=== PATIENT | male | born 1995 | race Caucasian/White ===

== ENCOUNTER → 2019-07-12 07:42 | Outpatient (BNVA) | payer MEDICAID, SELFPAY | PROVIDERS: Family Provider Family Medicine; PCP Family Medicine; Visit Provider Social Worker Clinical | DX: F90.2 Attention-deficit hyperactivity disorder, combined type (principal); F95.2 Tourette's disorder | CPT/HCPCS: 90834 ==

== ENCOUNTER → 2019-08-15 11:07 | Outpatient (BNVA) | payer MEDICAID, SELFPAY | PROVIDERS: Family Provider Family Medicine; PCP Family Medicine; Visit Provider Specialist | DX: F95.2 Tourette's disorder (principal); F60.5 Obsessive-compulsive personality disorder | CPT/HCPCS: 99213 ==

== ENCOUNTER → 2019-09-04 08:00 | Outpatient (BNVA) | payer MEDICAID, SELFPAY | PROVIDERS: Family Provider Family Medicine; PCP Family Medicine; Visit Provider Counselor Professional | DX: F60.5 Obsessive-compulsive personality disorder (principal); F95.2 Tourette's disorder; F98.8 Other specified behavioral and emotional disorders with onset usually occurring in childhood and adolescence | CPT/HCPCS: 90834 ==

== ENCOUNTER → 2019-09-25 09:07 | Outpatient (BNVA) | payer MEDICAID, SELFPAY | PROVIDERS: Family Provider Family Medicine; PCP Family Medicine; Visit Provider Counselor Professional | DX: F60.5 Obsessive-compulsive personality disorder (principal); F95.2 Tourette's disorder; F98.8 Other specified behavioral and emotional disorders with onset usually occurring in childhood and adolescence | CPT/HCPCS: 90834 ==

== ENCOUNTER → 2019-12-04 08:44 | Outpatient (BNVA) | payer MEDICAID, SELFPAY | PROVIDERS: Family Provider Family Medicine; PCP Family Medicine; Visit Provider Specialist | DX: R29.90 Unspecified symptoms and signs involving the nervous system (principal); F60.5 Obsessive-compulsive personality disorder; F95.2 Tourette's disorder | CPT/HCPCS: 99213; 99214 ==

== ENCOUNTER → 2019-12-06 08:29 | Outpatient (BNVA) | payer MEDICAID, SELFPAY | PROVIDERS: Family Provider Family Medicine; PCP Family Medicine; Visit Provider Counselor Professional | DX: F60.5 Obsessive-compulsive personality disorder (principal); F95.2 Tourette's disorder; F98.8 Other specified behavioral and emotional disorders with onset usually occurring in childhood and adolescence | CPT/HCPCS: 90834 ==

== ENCOUNTER → 2020-01-31 08:55 | Outpatient (BNVA) | payer MEDICAID, SELFPAY | PROVIDERS: Family Provider Family Medicine; PCP Family Medicine; Visit Provider Counselor Professional | DX: F60.5 Obsessive-compulsive personality disorder (principal); F95.2 Tourette's disorder | CPT/HCPCS: 90834 ==

== ENCOUNTER → 2020-02-07 07:25 | Outpatient (BNVA) | payer MEDICAID, SELFPAY | PROVIDERS: Family Provider Family Medicine; PCP Family Medicine; Visit Provider Counselor Professional | DX: F60.5 Obsessive-compulsive personality disorder (principal); F95.2 Tourette's disorder; F98.8 Other specified behavioral and emotional disorders with onset usually occurring in childhood and adolescence | CPT/HCPCS: 90834 ==

== ENCOUNTER → 2020-02-21 08:10 | Outpatient (BNVA) | payer MEDICAID, SELFPAY | PROVIDERS: Family Provider Family Medicine; PCP Family Medicine; Visit Provider Counselor Professional | DX: F60.5 Obsessive-compulsive personality disorder (principal); F95.2 Tourette's disorder | CPT/HCPCS: 90832 ==

== ENCOUNTER → 2020-05-01 08:23 | Outpatient (BNVA) | payer MEDICAID, SELFPAY | PROVIDERS: Family Provider Family Medicine; PCP Family Medicine; Visit Provider Counselor Professional | DX: F60.5 Obsessive-compulsive personality disorder (principal); F95.2 Tourette's disorder | CPT/HCPCS: 90834 ==

== ENCOUNTER → 2020-05-30 09:04 | Outpatient (BNVA) | payer MEDICAID, SELFPAY | PROVIDERS: Family Provider Family Medicine; PCP Family Medicine; Visit Provider Counselor Professional | DX: F60.5 Obsessive-compulsive personality disorder (principal); F95.2 Tourette's disorder | CPT/HCPCS: 90834 ==

== ENCOUNTER → 2020-08-20 12:19 | Outpatient (BNVA) | payer MEDICAID, SELFPAY | PROVIDERS: Family Provider Family Medicine; PCP Nurse Practitioner; Visit Provider Specialist | DX: F95.2 Tourette's disorder (principal); F60.5 Obsessive-compulsive personality disorder; Z00.00 Encounter for general adult medical examination without abnormal findings | CPT/HCPCS: 36415; 80053; 80061; 84443; 85025; 99213 ==

== ENCOUNTER → 2020-09-15 11:41 | Outpatient (BNVA) | payer OTHER, SELFPAY | PROVIDERS: Family Provider Family Medicine; PCP Nurse Practitioner; Visit Provider Psychiatry & Neurology Psychiatry | DX: F60.5 Obsessive-compulsive personality disorder (principal); Z79.899 Other long term (current) drug therapy | CPT/HCPCS: 80061; 83036 ==

== ENCOUNTER → 2020-11-24 11:34 | Outpatient (BNVA) | payer MEDICARE, MEDICAID, SELFPAY ==
[2020-09-16 10:24] VITALS: BP 117/86; BMI 31.5
== END ==
PROVIDERS: Family Provider Family Medicine; PCP Nurse Practitioner; Visit Provider Specialist
DX: F60.5 Obsessive-compulsive personality disorder (principal); F95.2 Tourette's disorder
CPT/HCPCS: 99213

== ENCOUNTER → 2021-03-09 09:40 | Outpatient (BNVA) | payer MEDICARE, MEDICAID, SELFPAY ==
[2020-09-16 10:24] VITALS: BP 117/86; BMI 31.5
== END ==
PROVIDERS: Family Provider Family Medicine; PCP Nurse Practitioner; Visit Provider Specialist
DX: F95.2 Tourette's disorder (principal); F60.5 Obsessive-compulsive personality disorder
CPT/HCPCS: 99213; 99214

== ENCOUNTER → 2021-05-15 10:00 | Outpatient (BNVA) | payer MEDICARE, MEDICAID, SELFPAY ==
[2020-09-16 10:24] VITALS: BP 117/86; BMI 31.5
== END ==
PROVIDERS: Family Provider Family Medicine; PCP Nurse Practitioner; Visit Provider Counselor Mental Health
DX: F60.5 Obsessive-compulsive personality disorder (principal); F95.2 Tourette's disorder; F98.8 Other specified behavioral and emotional disorders with onset usually occurring in childhood and adolescence
CPT/HCPCS: 90832

== ENCOUNTER → 2021-05-26 10:37 | Outpatient (BNVA) | payer MEDICARE, MEDICAID, SELFPAY ==
[2020-09-16 10:24] VITALS: BP 117/86; BMI 31.5
== END ==
PROVIDERS: Family Provider Family Medicine; PCP Nurse Practitioner; Visit Provider Specialist
DX: F95.2 Tourette's disorder (principal); F60.5 Obsessive-compulsive personality disorder
CPT/HCPCS: 99214

== ENCOUNTER → 2021-05-29 10:10 | Outpatient (BNVA) | payer MEDICAID, OTHER, SELFPAY ==
[2020-09-16 10:24] VITALS: BP 117/86; BMI 31.5
== END ==
PROVIDERS: Family Provider Family Medicine; PCP Nurse Practitioner; Visit Provider Counselor Mental Health
DX: F95.2 Tourette's disorder (principal); F60.5 Obsessive-compulsive personality disorder; F98.8 Other specified behavioral and emotional disorders with onset usually occurring in childhood and adolescence
CPT/HCPCS: 90832

== ENCOUNTER → 2021-06-08 09:03 | Outpatient (BNVA) | payer MEDICAID, SELFPAY ==
[2020-09-16 10:24] VITALS: BP 117/86; BMI 31.5
== END ==
PROVIDERS: Family Provider Family Medicine; PCP Nurse Practitioner; Visit Provider Counselor Mental Health
DX: F95.2 Tourette's disorder (principal); F60.5 Obsessive-compulsive personality disorder; F98.8 Other specified behavioral and emotional disorders with onset usually occurring in childhood and adolescence
CPT/HCPCS: 90834

== ENCOUNTER → 2021-06-22 09:47 | Outpatient (BNVA) | payer MEDICAID, SELFPAY ==
[2020-09-16 10:24] VITALS: BP 117/86; BMI 31.5
== END ==
PROVIDERS: Family Provider Family Medicine; PCP Nurse Practitioner; Visit Provider Counselor Mental Health
DX: F95.2 Tourette's disorder (principal); F60.5 Obsessive-compulsive personality disorder; F98.8 Other specified behavioral and emotional disorders with onset usually occurring in childhood and adolescence
CPT/HCPCS: 90834

== ENCOUNTER → 2021-07-28 09:55 | Outpatient (BNVA) | payer OTHER, SELFPAY ==
[2021-07-27 15:40] VITALS: BP 117/86; BMI 31.5
== END ==
PROVIDERS: Family Provider Family Medicine; PCP Nurse Practitioner; Visit Provider Psychiatry & Neurology Psychiatry
DX: F60.5 Obsessive-compulsive personality disorder (principal); Z79.899 Other long term (current) drug therapy
CPT/HCPCS: 80061; 83036

== ENCOUNTER → 2021-07-31 08:48 | Outpatient (BNVA) | payer MEDICAID, SELFPAY ==
[2021-07-30 15:26] VITALS: BP 149/90; BMI 34.2
== END ==
PROVIDERS: Family Provider Family Medicine; PCP Nurse Practitioner; Visit Provider Counselor Mental Health
DX: F95.2 Tourette's disorder (principal); F60.5 Obsessive-compulsive personality disorder; F98.8 Other specified behavioral and emotional disorders with onset usually occurring in childhood and adolescence
CPT/HCPCS: 90834

== ENCOUNTER → 2021-08-17 14:13 | Outpatient (BNVA) | payer MEDICARE, MEDICAID, SELFPAY ==
[2021-07-30 15:26] VITALS: BP 149/90; BMI 34.2
== END ==
PROVIDERS: Family Provider Family Medicine; PCP Nurse Practitioner; Visit Provider Nurse Practitioner Family
DX: J02.9 Acute pharyngitis, unspecified (principal); J04.0 Acute laryngitis
CPT/HCPCS: 87071; 87880

== ENCOUNTER → 2021-08-25 15:54 | Outpatient (BNVA) | payer MEDICAID, SELFPAY ==
[2021-07-30 15:26] VITALS: BP 149/90; BMI 34.2
== END ==
PROVIDERS: Family Provider Family Medicine; PCP Nurse Practitioner; Visit Provider Nurse Practitioner
DX: F95.2 Tourette's disorder (principal)
CPT/HCPCS: 80053; 84443

== ENCOUNTER → 2021-08-26 09:41 | Outpatient (BNVA) | payer MEDICARE, MEDICAID, SELFPAY ==
[2021-07-30 15:26] VITALS: BP 149/90; BMI 34.2
== END ==
PROVIDERS: Family Provider Family Medicine; PCP Nurse Practitioner; Visit Provider Specialist
DX: F95.2 Tourette's disorder (principal); F60.5 Obsessive-compulsive personality disorder; F98.8 Other specified behavioral and emotional disorders with onset usually occurring in childhood and adolescence
CPT/HCPCS: 99213

== ENCOUNTER → 2021-09-08 11:50 | Outpatient (BNVA) | payer MEDICAID, SELFPAY ==
[2021-07-30 15:26] VITALS: BP 149/90; BMI 34.2
== END ==
PROVIDERS: Family Provider Family Medicine; PCP Nurse Practitioner; Visit Provider Counselor Mental Health
DX: F95.2 Tourette's disorder (principal); F60.5 Obsessive-compulsive personality disorder; F98.8 Other specified behavioral and emotional disorders with onset usually occurring in childhood and adolescence
CPT/HCPCS: 90834

== ENCOUNTER → 2021-11-25 09:00 | Outpatient (BNVA) | payer MEDICARE, MEDICAID, SELFPAY ==
[2021-07-30 15:26] VITALS: BP 149/90; BMI 34.2
== END ==
PROVIDERS: Family Provider Family Medicine; PCP Nurse Practitioner; Referring Provider Specialist; Visit Provider Specialist
DX: F95.2 Tourette's disorder (principal); F98.8 Other specified behavioral and emotional disorders with onset usually occurring in childhood and adolescence; F60.5 Obsessive-compulsive personality disorder
CPT/HCPCS: 99213; 99214

== ENCOUNTER → 2022-02-23 08:03 | Outpatient (BNVA) | payer MEDICARE, MEDICAID, SELFPAY ==
[2021-07-30 15:26] VITALS: BP 149/90; BMI 34.2
== END ==
PROVIDERS: Family Provider Family Medicine; PCP Nurse Practitioner; Visit Provider Specialist
DX: F98.8 Other specified behavioral and emotional disorders with onset usually occurring in childhood and adolescence (principal); F95.2 Tourette's disorder
CPT/HCPCS: 99213; 99214

== ENCOUNTER → 2022-05-25 08:13 | Outpatient (BNVA) | payer MEDICARE, MEDICAID, SELFPAY ==
[2021-07-30 15:26] VITALS: BP 149/90; BMI 34.2
== END ==
PROVIDERS: Family Provider Family Medicine; PCP Nurse Practitioner; Visit Provider Specialist
DX: F98.8 Other specified behavioral and emotional disorders with onset usually occurring in childhood and adolescence (principal); F60.5 Obsessive-compulsive personality disorder; F95.2 Tourette's disorder; I10 Essential (primary) hypertension
CPT/HCPCS: 99213

== ENCOUNTER → 2022-08-25 08:27 | Outpatient (BNVA) | payer MEDICARE, MEDICAID, SELFPAY ==
[2021-07-30 15:26] VITALS: BP 149/90; BMI 34.2
== END ==
PROVIDERS: Family Provider Family Medicine; PCP Nurse Practitioner; Visit Provider Specialist
DX: F98.8 Other specified behavioral and emotional disorders with onset usually occurring in childhood and adolescence (principal); F95.2 Tourette's disorder; F60.5 Obsessive-compulsive personality disorder; Z79.899 Other long term (current) drug therapy
CPT/HCPCS: 99213

== ENCOUNTER → 2022-09-27 10:12 | Outpatient (BNVA) | payer MEDICARE, MEDICAID, SELFPAY ==
[2021-07-30 15:26] VITALS: BP 149/90; BMI 34.2
== END ==
PROVIDERS: Family Provider Family Medicine; PCP Nurse Practitioner; Visit Provider Nurse Practitioner
DX: S61.219A Laceration without foreign body of unspecified finger without damage to nail, initial encounter (principal); X58.XXXA Exposure to other specified factors, initial encounter
CPT/HCPCS: 73130

== ENCOUNTER → 2022-11-30 15:05 | Outpatient (BNVA) | payer MEDICARE, MEDICAID, SELFPAY ==
[2021-07-30 15:26] VITALS: BP 149/90; BMI 34.2
== END ==
PROVIDERS: Family Provider Family Medicine; PCP Nurse Practitioner; Visit Provider Specialist
DX: F95.2 Tourette's disorder (principal); F98.8 Other specified behavioral and emotional disorders with onset usually occurring in childhood and adolescence; F60.5 Obsessive-compulsive personality disorder; E66.9 Obesity, unspecified; Z68.30 Body mass index [BMI] 30.0-30.9, adult
CPT/HCPCS: 99213

== ENCOUNTER → 2023-04-25 13:33 | Outpatient (BNVA) | payer MEDICARE, MEDICAID, SELFPAY ==
[2021-07-30 15:26] VITALS: BP 149/90; BMI 34.2
== END ==
PROVIDERS: Family Provider Family Medicine; PCP Nurse Practitioner; Visit Provider Specialist
DX: F98.8 Other specified behavioral and emotional disorders with onset usually occurring in childhood and adolescence (principal); R63.5 Abnormal weight gain; Z68.34 Body mass index [BMI] 34.0-34.9, adult
CPT/HCPCS: 99213

== ENCOUNTER → 2023-06-30 14:27 | Outpatient (BNVA) | payer MEDICARE, MEDICAID, SELFPAY ==
[2023-06-30 08:49] VITALS: BP 149/90; BMI 34.2
== END ==
PROVIDERS: Family Provider Family Medicine; PCP Nurse Practitioner; Visit Provider Nurse Practitioner Family
DX: R05.9 Cough, unspecified (principal); U07.1 COVID-19
CPT/HCPCS: 87400; 87426

== ENCOUNTER → 2023-08-02 15:25 | Outpatient (BNVA) | payer MEDICARE, MEDICAID, SELFPAY ==
[2023-06-30 08:49] VITALS: BP 149/90; BMI 34.2
== END ==
PROVIDERS: Family Provider Family Medicine; PCP Nurse Practitioner; Visit Provider Specialist
DX: F98.8 Other specified behavioral and emotional disorders with onset usually occurring in childhood and adolescence (principal)
CPT/HCPCS: 99213

== ENCOUNTER 2023-09-16 07:08 | Emergency (ER) | payer MEDICARE, MEDICAID, SELFPAY ==
[2023-06-30 08:49] VITALS: BP 149/90; BMI 34.2
[2023-09-16 07:09] VITALS: BP 145/106; PULSE 93; RESP 18; TEMP 36.9; O2SAT 92
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
== END 2023-09-16 08:19 | disposition home or self-care (01) ==
PROVIDERS: Emergency Provider Nurse Practitioner Family; Family Provider Family Medicine; PCP Nurse Practitioner
DX: S40.012A Contusion of left shoulder, initial encounter (principal); Z77.22 Contact with and (suspected) exposure to environmental tobacco smoke (acute) (chronic); F95.2 Tourette's disorder; V58.5XXA Driver of pick-up truck or van injured in noncollision transport accident in traffic accident, initial encounter
CPT/HCPCS: 71046; 72040; 73030; 99284

== ENCOUNTER → 2023-11-01 12:07 | Outpatient (BNVA) | payer MEDICARE, MEDICAID, SELFPAY ==
[2023-06-30 08:49] VITALS: BP 149/90; BMI 34.2
== END ==
PROVIDERS: Family Provider Family Medicine; PCP Nurse Practitioner; Visit Provider Specialist
DX: F98.8 Other specified behavioral and emotional disorders with onset usually occurring in childhood and adolescence (principal); F95.2 Tourette's disorder; F60.5 Obsessive-compulsive personality disorder; F90.1 Attention-deficit hyperactivity disorder, predominantly hyperactive type
CPT/HCPCS: 99213

== ENCOUNTER 2023-12-28 15:48 | Emergency (ER) | payer MEDICARE, MEDICAID, SELFPAY ==
[2023-06-30 08:49] VITALS: BP 149/90; BMI 34.2
[2023-12-28 15:54] VITALS: BP 146/77; PULSE 112; RESP 16; TEMP 36.9; O2SAT 96
--- NOTE | 2023-12-28 18:08 | W.ED.WOUNDLC ---
HPI - Wound/Laceration General: Chief Complaint: Wound/Laceration Stated Complaint: finger wound, cut it with a saw Time Seen by Provider: 12/28/23 15:55 History of Present Illness: Patient accidentally dropped a railroad tie onto the right index finger. Smashing the distal part of it. Patient was seen in urgent care and x-ray was done and then patient was referred to the ER. Patient does have a distal tip crush injury with some partial avulsion of the distal nail. The nailbed is intact and not injured. Patient does not recall his last tetanus. Patient appears nontoxic. Patient reports mild pain. Review of Systems General: Reports: 10 or more systems reviewed and unremarkable except in HPI and below PFSH ED PFSH: Medical History Class 1 obesity with body mass index (BMI) of 33.0 to 33.9 in adult ADD (attention deficit disorder) Obsessive compulsive personality disorder Tourette's syndrome Surgical History History of tonsillectomy age 9 History of placement of ear tubes Family History Other CAD (coronary artery disease) Diabetes Hypertension Obsessive compulsive personality disorder Denies family history of Cancer Stroke Social History Smoking and tobacco/nicotine status: never used tobacco/nicotine Second hand smoke exposure: Yes Alcohol intake: former Substance/Drug Use: never Adopted: No Caregiver/support person: No Lives independently: Yes Household members: none Housing: Other Details: studio apartment Marital status: Single Number of children: 1 Number of grandchildren: 0 Highest education level completed: High School Graduate service: No 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 Pets and animals: Yes (3 dogs) Pets & animals: dog(s) Leisure activites: hunting, fishing and other 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, 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, 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, 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 Sexually active: No Do you think of yourself as: Straight/Heterosexual Current gender identity: Male Rama/Hoahaoism: Taoist Special rama needs: No Agree to transfusion: Yes Physical Exam Const: COMMON NORMALS: alert HENMT: COMMON NORMALS: normocephalic HEAD & SCALP: normocephalic Neck/C-Spine: COMMON NORMALS: full ROM Resp: COMMON NORMALS: normal respiratory effort Cardio: COMMON NORMALS: regular rate RATE: regular rate Back/Pelvis: COMMON NORMALS: thoracic and lumbar spine normal to inspection Extremity: RIGHT UPPER EXTREMITY: Yes hand & digits (Index finger distal crush injury affecting the distal nail) Neuro: SENSORIUM/ORIENTATION: Yes alert Skin: NARRATIVE SKIN EXAM: Distal avulsion of the right index finger. Course Vital Signs: Vital signs: Vital Signs Temperature 98.4 F 12/28/23 15:54 Pulse Rate 112 H 12/28/23 15:54 Respiratory Rate 16 12/28/23 15:54 Blood Pressure 146/77 12/28/23 15:54 Pulse Oximetry 96 12/28/23 15:54 Oxygen Delivery Me thod Room Air 12/28/23 15:54 MDM - Wound/Laceration Medical Decision Making 28-year-old male patient comes in today with injury to the right index finger. On exam patient has a avulsion of the skin and distal nail of the right index finger. Review of the x-ray from urgent care notes a distal defect to the distal phalanx. Differential diagnosis open fracture, skin avulsion, nail avulsion, need for prophylaxis antibiotic. Wound was cleaned thoroughly, detached piece of nail was removed from wound without difficulty. Digital block was performed for pain. Patient was given 2 g of Ancef for wound and the fracture. Patient be continued on cephalexin. Postprocedure care and instructions was given to patient for wound. Patient reports understanding of care plan and need for follow-up or return. No radiology studies performed this visit Discharge Plan Discharge Patient Disposition: Home Clinical Impression: Avulsion of skin Condition: Stable Prescriptions: New cephalexin 500 mg capsule 500 mg PO Q8H 10 Days Qty: 30 0RF No Action Mucinex 1,200 mg tablet extended release 12hr 1,200 mg PO BID Qty: 20 0RF zinc 50 mg tablet 50 mg PO DAILY ascorbic acid (vitamin C) [Vitamin C] 500 mg capsule, extended release 500 mg PO DAILY magnesium 250 mg tablet 250 mg PO DAILY fluticasone propionate [Flonase Allergy Relief] 50 mcg/actuation spray,suspension 1 spray INTRANASAL DAILY Rx Instructions: administer into each nostril albuterol sulfate 90 mcg/actuation HFA aerosol inhaler 2 puff inhalation QID PRN (Reason: shortness of breath or wheezing) Qty: 6.7 0RF cefuroxime axetil 500 mg tablet 500 mg PO BID Qty: 14 0RF mupirocin 2 % ointment 1 applic topical BID Qty: 22 0RF methylphenidate HCl 20 mg tablet 10 mg PO BID 30 Days Qty: 60 0RF Rx Instructions: Do not fill until 05/22/2023 aripiprazole 15 mg tablet See Rx Instructions .ROUTE .COMPLEX Qty: 90 3RF Dose Instruction: TAKE ONE TABLET BY MOUTH DAILY Rx Instructions: TAKE ONE TABLET BY MOUTH DAILY paroxetine HCl 30 mg tablet See Rx Instructions .ROUTE .COMPLEX Qty: 180 3RF Dose Instruction: TAKE TWO TABLETS BY MOUTH DAILY Rx Instructions: TAKE TWO TABLETS BY MOUTH DAILY Discharge Orders: Discharge ED (Routine); Ordered 12/28/23 Ordered By: [place] Referrals: Lucien Contreras FNP-C [Primary Care Provider] - Demar Rao MD [Family Provider] - Discharge Diet: Usual diet Discharge Activity: Increase activity as tolerated Patient Instructions: Nail Avulsion (ED) Activity Restrictions/Additional Instructions: Please initial dressing on 2 to 3 days as long as it does not get soiled or wet. If it does get wet remove the dressing and we apply Vaseline or antibiotic ointment and then cover again with gauze and securing tape. Avoid wrapping the wound too tight. Take oral antibiotics as directed. Follow-up with primary care in 2 weeks for recheck. Return to ED for new concerns or worsening symptoms such as increasing redness and swelling to the finger, severe pain with range of motion of the finger, or fever greater than 100.4. Coding Level of Care Code ED Pedigree Tracer for Beck Kuhn
[2023-12-28] MEDS: bacitracin ointment Pkt 1 EACH TOPICAL (19:14)
[2023-12-28] MEDS: ceFAZolin 2,000 mg SDV 2000 MG IVP (19:34)
[2023-12-28] MEDS: water for injection-sterile SDV 10 mL 15 ML IVP (19:34)
[2023-12-28 19:53] VITALS: BP 141/75; PULSE 98; RESP 16; TEMP 36.9; O2SAT 98
== END 2023-12-28 19:51 | disposition home or self-care (01) ==
PROVIDERS: Emergency Provider Nurse Practitioner Family; Family Provider Family Medicine; PCP Nurse Practitioner
DX: S61.310A Laceration without foreign body of right index finger with damage to nail, initial encounter (principal); E66.9 Obesity, unspecified; Z68.34 Body mass index [BMI] 34.0-34.9, adult; Z79.899 Other long term (current) drug therapy; W27.0XXA Contact with workbench tool, initial encounter
CPT/HCPCS: 64450; 73130; 96374; 99284; 99291; A6446; J0690

== ENCOUNTER → 2024-02-03 13:12 | Outpatient (BNVA) | payer MEDICARE, MEDICAID, SELFPAY ==
[2023-06-30 08:49] VITALS: BP 149/90; BMI 34.2
== END ==
PROVIDERS: Family Provider Family Medicine; PCP Nurse Practitioner; Visit Provider Specialist
DX: F98.8 Other specified behavioral and emotional disorders with onset usually occurring in childhood and adolescence (principal); F95.2 Tourette's disorder; F60.5 Obsessive-compulsive personality disorder; F90.1 Attention-deficit hyperactivity disorder, predominantly hyperactive type
CPT/HCPCS: 99213

== ENCOUNTER → 2024-05-08 15:00 | Outpatient (BNVA) | payer MEDICARE, MEDICAID, SELFPAY ==
[2023-06-30 08:49] VITALS: BP 149/90; BMI 34.2
== END ==
PROVIDERS: Family Provider Family Medicine; PCP Nurse Practitioner; Visit Provider Specialist
DX: F98.8 Other specified behavioral and emotional disorders with onset usually occurring in childhood and adolescence (principal); F95.2 Tourette's disorder; F60.5 Obsessive-compulsive personality disorder; F90.1 Attention-deficit hyperactivity disorder, predominantly hyperactive type
CPT/HCPCS: 99214

== ENCOUNTER → 2024-07-05 10:15 | Outpatient (BNVA) | payer MEDICARE, MEDICAID, SELFPAY ==
[2024-05-29 14:30] VITALS: BP 149/90; BMI 34.2
== END ==
PROVIDERS: Family Provider Family Medicine; PCP Nurse Practitioner; Visit Provider Nurse Practitioner
DX: I10 Essential (primary) hypertension (principal); J30.89 Other allergic rhinitis
CPT/HCPCS: 80053; 80061; 85025

== ENCOUNTER → 2024-09-05 10:07 | Outpatient (BNVA) | payer MEDICARE, MEDICAID, SELFPAY ==
[2024-05-29 14:30] VITALS: BP 149/90; BMI 34.2
== END ==
PROVIDERS: Family Provider Family Medicine; PCP Nurse Practitioner; Visit Provider Nurse Practitioner
DX: J06.9 Acute upper respiratory infection, unspecified (principal); D50.9 Iron deficiency anemia, unspecified; I10 Essential (primary) hypertension
CPT/HCPCS: 82607; 83550

== ENCOUNTER → 2024-10-30 15:15 | Outpatient (BNVA) | payer MEDICARE, MEDICAID, SELFPAY ==
[2024-05-29 14:30] VITALS: BP 149/90; BMI 34.2
== END ==
PROVIDERS: Family Provider Family Medicine; PCP Nurse Practitioner; Visit Provider Specialist
DX: F98.8 Other specified behavioral and emotional disorders with onset usually occurring in childhood and adolescence (principal); F95.2 Tourette's disorder; F60.5 Obsessive-compulsive personality disorder; F90.1 Attention-deficit hyperactivity disorder, predominantly hyperactive type
CPT/HCPCS: 99213

== ENCOUNTER → 2024-12-05 08:18 | Outpatient (BNVA) | payer MEDICARE, MEDICAID, SELFPAY ==
[2024-05-29 14:30] VITALS: BP 149/90; BMI 34.2
== END ==
PROVIDERS: Family Provider Family Medicine; PCP Nurse Practitioner; Visit Provider Nurse Practitioner
DX: I10 Essential (primary) hypertension (principal); R73.9 Hyperglycemia, unspecified
CPT/HCPCS: 80053; 80061; 83036; 85025

== ENCOUNTER → 2025-01-28 07:54 | Outpatient (BNVA) | payer MEDICARE, MEDICAID, SELFPAY ==
[2024-05-29 14:30] VITALS: BP 149/90; BMI 34.2
== END ==
PROVIDERS: Family Provider Family Medicine; PCP Nurse Practitioner; Visit Provider Specialist
DX: F90.1 Attention-deficit hyperactivity disorder, predominantly hyperactive type (principal)
CPT/HCPCS: 99213

== ENCOUNTER → 2025-02-04 09:31 | Outpatient (BNVA) | payer MEDICARE, MEDICAID, SELFPAY ==
[2024-05-29 14:30] VITALS: BP 149/90; BMI 34.2
== END ==
PROVIDERS: Family Provider Family Medicine; PCP Nurse Practitioner; Visit Provider Family Medicine
DX: R31.9 Hematuria, unspecified (principal)
CPT/HCPCS: 81000